=== PATIENT | female | born 1950 ===

== ENCOUNTER 2018-11-30 13:25 | Outpatient (REF) | payer MEDICARE, BC, SELFPAY ==
[2018-12-04 12:38] LABS: Helicobacter pylori Ag, Feces Negative (NEGAT)
== END 2018-11-30 13:45 ==
LOC: NCHCN 13:25
PROVIDERS: PCP Family Medicine; Visit Provider Internal Medicine
DX: D50.9 Iron deficiency anemia, unspecified (principal)
CPT/HCPCS: 87338

== ENCOUNTER 2020-03-26 09:55 | Outpatient (REF) | payer MEDICARE, BC, SELFPAY ==
[2020-03-26 20:11] LABS: Abs Immature Grans 0.01 k/cumm (0.0-0.09); Absolute Basophil Count 0.02 k/cumm (0.0-0.2); Absolute Eosinophil Count 0.11 k/cumm (0.0-0.7); Absolute Lymphocyte Count 0.96 k/cumm (1.2-3.4); Absolute Monocyte Count 0.33 k/cumm (0.11-0.7); Absolute Neutrophil Count 2.36 k/cumm (1.2-6.7); Basophils % 0.5; Eosinophils % 2.9; HCT 35.9 % (36.0-46.0); HGB 11.9 g/dL (12.0-15.5); Immature Grans % 0.3 %; Lymphocytes % 25.3; Mean Corp. HGB Concentration 33.1 g/dL (32.0-36.0); Mean Corpuscular Hemoglobin 28.5 pg (27.0-33.0); Mean Corpuscular Volume 86.1 fL (80-95); Mean Platelet Volume 10.2 fL (8.0-11.0); Monocytes % 8.7; Neutrophils % 62.3; Platelet Count 321 x1000/uL (130-400); RBC 4.17 m/cumm (4.00-5.20); RBC Distribution Width 13.5 % (11.7-14.6); White Blood Cell Count 3.79 k/cumm (4.4-10.8)
[2020-03-26 20:20] LABS: ALT 14 U/L (14-59); AST 20 U/L (15-37); Albumin 3.8 g/dL (3.4-5.0); Alkaline Phosphatase 91 U/L (46-116); Anion Gap 4.3 mmol/L (3-11); BUN 17 mg/dL (7-18); Bilirubin, Total 0.4 mg/dL (0.2-1.0); CO2 27.7 mmol/L (21.0-32.0); CREATININE 0.75 mg/dL (0.55-1.02); Calcium 9.8 mg/dL (8.5-10.1); Chloride 105 mmol/L (98-107); Glucose 90 mg/dL (74-106); Lipase 247 U/L (73-393); Potassium 4.4 mmol/L (3.5-5.1); Sodium 137 mmol/L (136-145); Total Protein 6.2 g/dL (6.4-8.2)
[2020-03-30 13:40] LABS: Tissue Transglutaminase Ab IgA 1.3 U/mL
== END 2020-03-26 10:15 ==
LOC: NCHCN 09:55
PROVIDERS: PCP Family Medicine; Visit Provider Family Medicine
DX: K90.0 Celiac disease (principal); R10.11 Right upper quadrant pain
CPT/HCPCS: 80053; 83690; 83516; 85025

== ENCOUNTER 2020-07-22 16:41 | Outpatient (REF) | payer MEDICARE, BC, SELFPAY ==
[2020-07-24 17:23] LABS: COVID-19 RT-PCR Result NEGATIVE (Negative)
== END 2020-07-22 17:01 ==
LOC: NCHCN 16:41
PROVIDERS: PCP Family Medicine; Visit Provider Family Medicine
DX: J02.9 Acute pharyngitis, unspecified (principal); D3A.8 Other benign neuroendocrine tumors
CPT/HCPCS: U0003

== ENCOUNTER 2020-08-28 12:14 | Outpatient (CLI) | payer MEDICARE, BC, SELFPAY ==
[2020-08-28 12:29] LABS: Abs Immature Grans 0.01 10^3/uL (0.0-0.06); Absolute Basophil Count 0.04 10^3/uL (0.0-0.2); Absolute Eosinophil Count 0.16 10^3/uL (0.0-0.7); Absolute Lymphocyte Count 1.26 10^3/uL (1.2-3.4); Absolute Monocyte Count 0.36 10^3/uL (0.1-0.8); Absolute Neutrophil Count 2.49 10^3/uL (1.2-6.7); Basophils % 0.9; Eosinophils % 3.7; HCT 40.1 % (36.0-46.0); HGB 13.2 g/dL (11.2-15.7); Immature Grans % 0.2; Lymphocytes % 29.2; MCH 28.8 pg (27.0-33.0); MCHC 32.9 % (32.0-36.0); MCV 87.6 fL (80-95); MPV 8.8 fL (8.0-11.0); Monocytes % 8.3; Neutrophils % 57.7; Nucleated RBC 0 %; Platelet Count 280 10^3/uL (130-400); RBC 4.58 10^6/uL (3.93-5.22); RDW 13.8 % (11.7-14.6); WBC 4.32 10^3/uL (4.4-10.8)
[2020-08-28 12:43] LABS: ALT 11 U/L (14-59); AST 20 U/L (15-37); Alkaline Phosphatase 97 U/L (46-116); Anion Gap 3.7 mmol/L (3-11); BUN 16 mg/dL (7-18); Bilirubin, Total 0.4 mg/dL (0.2-1.0); CO2 31.3 mmol/L (21.0-32.0); CREATININE 0.73 mg/dL (0.55-1.02); Chloride 101 mmol/L (98-107); Glucose 75 mg/dL (74-106); Potassium 4.2 mmol/L (3.5-5.1); Sodium 136 mmol/L (136-145); Total Protein 6.9 g/dL (6.4-8.2)
[2020-08-31 15:12] LABS: Chromogranin A 384 ng/mL (<93)
== END 2020-08-28 12:34 ==
PROVIDERS: PCP Family Medicine; Visit Provider Internal Medicine Hematology & Oncology
DX: C7B.02 Secondary carcinoid tumors of liver (principal)
CPT/HCPCS: 36415; 80053; 85025; 86316

== ENCOUNTER 2021-05-04 16:41 | Outpatient (REF) | payer MEDICARE, BC, SELFPAY | END 2021-05-04 16:42 | disposition home or self-care (01) | LOC: NCHCN 16:41 | PROVIDERS: PCP Family Medicine; Visit Provider Family Medicine | DX: R35.0 Frequency of micturition (principal) | CPT/HCPCS: 87086 ==

== ENCOUNTER 2023-09-01 18:37 | Outpatient (REF) | payer MEDICARE, BC, SELFPAY ==
[2023-09-01 15:57] LABS: HGB 10.4 g/dL (11.2-15.7); MCH 30.3 pg (27.0-33.0); MCHC 33.5 % (32.0-36.0); MCV 90 fL (80-95); MPV 10.1 fL (8.0-11.0); Platelet Count 293 10^3/uL (130-400); RBC 3.43 10^6/uL (3.93-5.22); RDW 14.4 % (11.7-14.6); RDW-SD 47.9 fL; WBC 3.65 10^3/uL (4.4-10.8)
[2023-09-01 16:21] LABS: TSH (W/Ref FT4) 1.68 uIU/mL (0.36-3.74)
== END 2023-09-01 18:38 | disposition home or self-care (01) ==
LOC: NCHCN 18:37
PROVIDERS: PCP Family Medicine; Visit Provider Family Medicine
DX: R06.02 Shortness of breath (principal); E55.9 Vitamin D deficiency, unspecified; Z13.29 Encounter for screening for other suspected endocrine disorder
CPT/HCPCS: 82306; 85027; 84443